=== PATIENT | female | born 1965 | race Caucasian/White ===

== ENCOUNTER 2024-11-14 20:46 | Emergency (ER) | payer BC, SELFPAY ==
[2024-11-14 20:48] VITALS: BP 139/88
--- NOTE | 2024-11-14 21:05 | ED.GENMED ---
History of Present Illness
General
Chief Complaint: Skin Problem
Source: patient and family
Time Seen by Provider: 11/14/24 20:57
Nursing documentation reviewed up to this point in time: agreed with
History of Present Illness
History of Present Illness:
Note:
CHIEF COMPLAINT(S)
Painful insect sting on right bunion.
HISTORY OF PRESENT ILLNESS
The patient is a 59-year-old female with a painful swelling on her right bunion following an insect sting. The patient has experienced multiple stings in the past, but describes this particular sting as more painful, suggesting that it might have
struck directly on the bone. She reports no issues with breathing or throat, and denies experiencing anxiety. The pain intensifies periodically and resembles a nerve pain, described as 'like somethings in there.' The patient mentioned that the
weight of ice on the injury caused additional discomfort.
CHRONIC MEDICAL CONDITIONS SIGNIFICANTLY AFFECTING CARE
Diabetes Mellitus
PLAN
Administer antihistamines including Benadryl and Pepcid. Recommend applying ice to the area to reduce swelling, although the patient reports discomfort with ice application. Monitor for any signs of an allergic reaction or infection.
PHYSICAL EXAM
- Skin: Note swelling on the right bunion where the sting occurred.
- Cardiac: Heart sounds are clear.
- Pulmonary: Lungs are clear on auscultation.
Nursing notes reviewed and vital signs reviewed.
DIFFERENTIAL DIAGNOSIS
The Differential Diagnosis includes, in no particular order and is not limited to:
- Localized allergic reaction to insect sting
- Cellulitis secondary to insect sting
- Acute gout attack
- Osteomyelitis at the site of sting
- Nerve injury or neuropathy
- Deep vein thrombosis in the affected limb
- Fracture or bone injury due to the insect sting or fall
- Diabetic neuropathy exacerbation at the site of sting
- Localized edema due to diabetes
- Tendonitis or bursitis of the affected area
Disposition:
SUMMARY OF ENCOUNTER
The patient, a 59-year-old female, presented to the emergency department with a painful swelling on her right bunion after an insect sting. She reported no respiratory or cardiac symptoms, including difficulty breathing, swallowing, or scratchy
throat. Given her stable condition and absence of systemic symptoms, management included administering appropriate medications, monitoring for potential allergic reactions, and advising application of ice to reduce swelling.
DISPOSITION
Discharge
ASSESSMENT
Suspected localized allergic reaction to an insect sting on the right bunion.
PLAN
Administer antihistamines (e.g., diphenhydramine and famotidine). Recommend application of ice to the affected area to assist in reducing swelling, provided it does not cause additional discomfort for the patient. Monitor for signs of an allergic
reaction or infection.
PATIENT EDUCATION AND COUNSELING
Advised patient on monitoring the site for increased redness, swelling, or signs of infection. Educated on using antihistamines as directed and noted to observe any worsening of symptoms that may suggest a systemic reaction.
FOLLOW-UP INSTRUCTIONS
Instructed the patient to seek medical attention if experiencing increased pain, signs of infection, or any new systemic symptoms such as difficulty breathing or swelling in other areas.
MEDICATION RECONCILIATION
Administered antihistamines (e.g., diphenhydramine and famotidine) during the visit with instructions for continued use at home as needed for symptom control.
MEDICAL DECISION MAKING
1. Number and Complexity of Problems Addressed:
. Differential Diagnosis includes localized allergic reaction to insect sting, cellulitis secondary to insect sting, acute gout attack, osteomyelitis at the site of sting, nerve injury or neuropathy, deep vein thrombosis in the affected limb,
fracture or bone injury due to the insect sting or fall, diabetic neuropathy exacerbation at the site of sting, localized edema due to diabetes, and tendonitis or bursitis of the affected area.
DIAGNOSIS
1. Localized allergic reaction to insect sting (T63.441A)
2. Diabetes Mellitus (E11.9)
Phy Exam
General Physical Exam
General Presentation: well appearing and no apparent distress
General Skin: warm and dry
General Habitus: normal
General Mental: alert
General Hydration: appears well hydrated
ENT Exam
ENT Exam: EOMI, pharynx normal, neck supple and normocephalic
Eye Exam
Eye Exam: PERRL, cornea clear and conjunctiva normal
Cardiovascular Exam
Cardiovascular Exam: regular rate/rhythm, no edema, no murmur and normal peripheral pulses
Pulmonary Exam
Pulmonary Exam: lungs clear, no respiratory distress, no rales, no crackles, no rhonchi, no stridor, no wheezing and no cough
Gastrointestinal Exam
Gastrointestinal Exam: normal bowel sounds, non tender, soft, no organomegaly, no pulsatile mass and non distended
Neurological Exam
Neurological Exam: alert, oriented x3, no motor deficits and speech normal
Musculoskeletal Exam
Musculoskeletal Exam: full ROM and no edema
Skin Exam
Skin Exam: redness (No obvious signs of cellulitis. Stinger is not present)
Psychiatric Exam
Psychiatric Exam: normal mood/affect
Course
Orders/Labs/Results
Orders:
Orders
11/14/24 21:04
Dexamethasone Pf [Decadron] 10 mg PO NOW STA
Diphenhydramine [Benadryl] 50 mg PO NOW STA
Famotidine [Pepcid] 20 mg PO NOW STA
Vital Signs
Initial and Last Documented VS:
Initial Vital Signs
Temp Pulse Resp BP Pulse Ox
98.5 F 79 16 139/88 98
11/14/24 20:48 11/14/24 20:48 11/14/24 20:48 11/14/24 20:48 11/14/24 20:48
Last Documented Vital Signs
Temp Pulse Resp BP Pulse Ox
98.5 F 79 16 139/88 98
11/14/24 20:48 11/14/24 20:48 11/14/24 20:48 11/14/24 20:48 11/14/24 20:48
*Pulse Oximetry
SaO2: 98
Oxygen Mode of Delivery: Room air
Patient hypoxic: no
*Critical Care Note
Total Time (30-74mins, 75-104mins- exclusive of procedures): Not Applicable
ED Attending Note
-
Portions of this chart may have been created with voice recognition software.� Occasional wrong word or��sound alike� substitutions may have occurred due to the inherent limitations of voice recognition software.
Discharge Plan
Departure
Discharge Problem:
Accidental insect sting
Instructions: BLOOD PRESSURE, Insect bites and stings - ED discharge instructions
Prescriptions:
New
diphenhydramine HCl [Benadryl] 25 mg capsule
25 mg PO TID PRN (Reason: allergy symptoms) Qty: 14 0RF
famotidine [Pepcid] 20 mg tablet
20 mg PO BID Qty: 14 0RF
epinephrine [EpiPen] 0.3 mg/0.3 mL auto-injector
0.3 mg IM .STAT PRN (Reason: anaphylaxis) Qty: 1 0RF
Activity Restrictions/Additional Instructions:
Thank You for choosing [facility].
It was a pleasure meeting you and taking part in your care. We hope for your continued healing and wellness.
Please read discharge instructions in their entirety. However, they are for general education and may not describe your exact diagnosis at discharge. Information on your ER visit and medical conditions were discussed with you along with appropriate
follow up information...
If indicated, please take your medications as instructed and indicated on discharge paperwork.
Please schedule a follow up appointment as directed. Call to schedule an appointment
Please return to the emergency department with ANY change in, persisting, or worsening of symptoms. If any of your symptoms do not improve, or persist, or become more severe within 6-12 hours, please return to the emergency department for further
care.
Please return to the emergency department if you develop a headache, neck pain/stiffness, fever greater than 100.4F, chest pain, shortness of breath, persistent nausea, vomiting, slurred speech, difficulty walking, numbness/tingling, weakness, signs
of infection or any other symptoms that are worrisome to you.
If you have any questions or concerns please do not hesitate to call the Hospital at or E-mail me directly at [email or web address]
Interventions
Interventions:
*Risk Screen - Suicide Last Done: 11/14/24 20:52
*Neglect/Abuse Screening Last Done: 11/14/24 20:52
Discharge Date and Time
Print Language: PASHTO
[2024-11-14] MEDS: PEPCID 20 MG PO (21:14)
[2024-11-14] MEDS: BENADRYL 50 MG PO (21:14)
[2024-11-14] MEDS: DECADRON 10 MG PO (21:15)
[2024-11-14 21:18] VITALS: BMI 39.3
[2024-11-14] MEDS: PERCOCET 5/325 1 TABLET PO (21:26)
[2024-11-14 22:31] VITALS: BP 131/69
== END 2024-11-14 22:48 | disposition home or self-care (01) ==
LOC: EMR 20:46
PROVIDERS: EMERGENCY PHYSICIAN Student in an Organized Health Care Education/Training Program; FAMILY PHYSICIAN Internal Medicine
DX: S90.861A Insect bite (nonvenomous), right foot, initial encounter (principal); W57.XXXA Bitten or stung by nonvenomous insect and other nonvenomous arthropods, initial encounter; E11.9 Type 2 diabetes mellitus without complications
CPT/HCPCS: 99283

== ENCOUNTER 2025-03-04 06:25 | Day surgery (SDC) | payer BC, SELFPAY | END 2025-03-04 12:10 | disposition home or self-care (01) | LOC: GI 06:25 | PROVIDERS: ATTENDING PHYSICIAN Internal Medicine Gastroenterology | DX: R12 Heartburn (principal); K22.2 Esophageal obstruction; K44.9 Diaphragmatic hernia without obstruction or gangrene; R13.10 Dysphagia, unspecified; K20.80 Other esophagitis without bleeding; K21.9 Gastro-esophageal reflux disease without esophagitis | CPT/HCPCS: 43249; 43239; 88305 ==